=== PATIENT | female | born 1985 | race African-American/Black ===

== ENCOUNTER 2022-10-03 10:22 | Emergency (ER) | payer MEDICAID ==
[~2022-10-03] VITALS: Ht 165.1 cm; Wt 61.0 kg
[2022-10-03 10:25] VITALS: BP 113/80
== END 2022-10-03 18:08 | disposition left against medical advice (07) ==
LOC: ER 10:22
DX: Z53.21 Procedure and treatment not carried out due to patient leaving prior to being seen by health care provider (principal)
CPT/HCPCS: 93005